=== PATIENT | female | born 1930 | race Caucasian/White ===

== ENCOUNTER 2018-02-22 06:19 | Day surgery (SDC) | payer MEDICARE, OTHER ==
[~2018-02-22] VITALS: Ht 157.5 cm; Wt 59.0 kg
[2018-02-22] MEDS ORDERED: LIDOCAINE 4% 50 ML SOLUTION TP ONE (06:20)
[2018-02-22] MEDS ORDERED: LIDOCAINE 2% 30 ML JELLY TP ONE (06:20)
[2018-02-22] MEDS ORDERED: BENZOCAINE 20% 50 MCG/SPRAY 57 GM TP ONE (06:20)
[2018-02-22] MEDS ORDERED: ALBUTEROL SULFATE 2.5 MG/0.5 ML NEB SOLUTION NEB ONE ×3 (06:20→10:45)
[2018-02-22] MEDS ORDERED: SODIUM CHLORIDE 0.9% 1,000 ML IV ONE ×2 (06:30→06:33)
[2018-02-22] MEDS ORDERED: LORA10TA7 PO (07:18)
[2018-02-22] MEDS ORDERED: MAG1TAB.8 PO (07:18)
[2018-02-22] MEDS ORDERED: DOCU50LI12 PO (07:18)
[2018-02-22] MEDS ORDERED: ALBU8HFA PO (07:18)
[2018-02-22] MEDS ORDERED: TIOT4MIS2 PO (07:18)
[2018-02-22] MEDS ORDERED: CALC1TAB93 PO (07:18)
[2018-02-22] MEDS ORDERED: TYL3B PO (07:18)
[2018-02-22] MEDS ORDERED: OMEP20 PO (07:18)
[2018-02-22] MEDS ORDERED: CARV25 PO (07:18)
[2018-02-22] MEDS ORDERED: MONT10TA21 PO (07:18)
[2018-02-22] MEDS ORDERED: DULO60CA44 PO (07:18)
[2018-02-22] MEDS ORDERED: MECL-111 PO (07:18)
[2018-02-22] MEDS ORDERED: MULT-1203 PO (07:18)
[2018-02-22] MEDS ORDERED: IBAN150T8 PO (07:18)
[2018-02-22] MEDS ORDERED: BUDE10.2 IH (07:18)
[2018-02-22] MEDS ORDERED: ASPI81 PO (07:18)
[2018-02-22] MEDS ORDERED: AMLO-512 PO (07:18)
[2018-02-22] MEDS ORDERED: MELO-107 PO (07:18)
[2018-02-22] MEDS ORDERED: MIDAZOLAM HCL 2 MG/2 ML VIAL ONE (07:52)
[2018-02-22] MEDS ORDERED: FentaNYL CITRATE-PF 100 MCG/2 ML VIAL ONE (07:52)
[2018-02-22] MEDS ORDERED: MethylPREDNISolone SOD SUCC 125 MG/2 ML VIAL ONE ×2 (08:59→10:36)
[2018-02-22] MEDS ORDERED: MethylPREDNISolone SOD SUCC 125 MG/2 ML VIAL IVP ONE (09:00)
[2018-02-22] MEDS ORDERED: MethylPREDNISolone SOD SUCC 40 MG/ML VIAL IVP ONE (10:30)
[2018-02-22] MEDS ORDERED: IPRATROPIUM BROMIDE 0.5 MG/2.5 ML NEB SOLUTION NEB ONE ×2 (10:35→10:45)
[2018-02-22] MEDS ORDERED: MethylPREDNISolone SOD SUCC 40 MG/ML VIAL ONE (10:42)
[2018-02-22] MEDS ORDERED: OXYGEN THERAPY IH SCH (20:00)
== END 2018-02-22 11:25 | disposition home or self-care (01) ==
LOC: SURGERY 06:19
PROVIDERS: ATTEND Internal Medicine Critical Care Medicine
DX: J38.4 Edema of larynx (principal); B37.0 Candidal stomatitis; J84.111 Idiopathic interstitial pneumonia, not otherwise specified; J98.09 Other diseases of bronchus, not elsewhere classified; I45.10 Unspecified right bundle-branch block; J45.998 Other asthma; I10 Essential (primary) hypertension; Z79.891 Long term (current) use of opiate analgesic; Z79.82 Long term (current) use of aspirin; Z98.890 Other specified postprocedural states; Z79.899 Other long term (current) drug therapy
CPT/HCPCS: 31623; 31624; 71045; 87015; 87070; 87077; 87186; 87205; 87206; 87220; 88108; 88312; 93005; 94640; J2250; J2920; J2930; J3010; J7030